=== PATIENT | female | born 1975 | race Two or more races ===

== ENCOUNTER 2017-04-04 17:53 | Emergency (ER) | payer BC ==
[~2017-04-04] VITALS: Ht 162.6 cm; Wt 79.0 kg
--- NOTE | 2017-04-04 18:46 | PHYS DOC ---
Past Medical History Past Medical History: No Pertinent History Past Surgical History: Tubal ligation, Other Additional Past Surgical Histo: fallopian tube removed/ectopic Alcohol Use: None Drug Use: None Adult General Chief Complaint Chief Complaint: DIZZY/LIGHT HEADED HPI HPI Patient is a 42 year old female who presents with multiple medical complaints. Patient reports headache, dizziness on standing, chest pain and lower abdominal pain. Patient denies nausea vomiting. She reports generalized weakness. No fever, chills, vomiting, sweats, constipation, diarrhea. Last menstrual period was 3 weeks ago. Evaluated by your PCP 2 days ago and today for the same complaints. Review of Systems Review of Systems Review symptoms as per history of present illness. All other review symptoms are negative. Current Medications Current Medications Current Medications Medications (Trade) Dose Ordered Sig/Lacey Start Time Stop Time Status Last Admin Dose Admin Acetaminophen/ Hydrocodone Bitart (Lortab 5/325) 1 tab 1X ONCE 04/04/17 22:30 04/04/17 22:30 DC Allergies Allergies Allergies Coded Allergies Type Severity Reaction Last Updated Verified No Known Drug Allergies 04/04/17 No Physical Exam Physical Exam Constitutional: Well developed, well nourished, no acute distress, non-toxic appearance. [] HENT: Normocephalic, atraumatic, bilateral external ears normal, oropharynx moist, no oral exudates, nose normal. [] Eyes: PERRLA, EOMI, conjunctiva normal, no discharge. [] Neck: Normal range of motion, no tenderness, supple, no stridor. [] Cardiovascular:Heart rate regular rhythm, no murmur [] Lungs & Thorax: Bilateral breath sounds clear to auscultation [] Abdomen: Bowel sounds normal, soft, no distention.. [] Skin: Warm, dry, no erythema, no rash. [] Back: No tenderness, no CVA tenderness. [] Extremities: No tenderness, no cyanosis, no clubbing, ROM intact, no edema. [] Neurologic: Alert and oriented X 3, normal motor function, normal sensory function, no focal deficits noted. [] Psychologic: Affect normal, judgement normal, mood normal. [] Current Patient Data Vital Signs Vital Signs Date Time Temp Pulse Resp B/P (MAP) Pulse Ox O2 Delivery O2 Flow Rate FiO2 04/04/17 20:13 64 20 114/62 (79) 97 Room Air 04/04/17 18:15 98.0 98.0 Lab Values Laboratory Tests Test 04/04/17 19:05 04/04/17 19:11 White Blood Count 8.7 x10^3/uL (4.0-11.0) Red Blood Count 4.01 x10^6/uL (3.50-5.40) Hemoglobin 12.5 g/dL (12.0-15.5) Hematocrit 37.5 % (36.0-47.0) Mean Corpuscular Volume 94 fL (79-100) Mean Corpuscular Hemoglobin 31 pg (25-35) Mean Corpuscular Hemoglobin Concent 33 g/dL (31-37) Red Cell Distribution Width 13.7 % (11.5-14.5) Platelet Count 199 x10^3/uL (140-400) Neutrophils (%) (Auto) 72 % (31-73) Lymphocytes (%) (Auto) 20 % (24-48) L Monocytes (%) (Auto) 6 % (0-9) Eosinophils (%) (Auto) 1 % (0-3) Basophils (%) (Auto) 1 % (0-3) Neutrophils # (Auto) 6.3 x10^3uL (1.8-7.7) Lymphocytes # (Auto) 1.8 x10^3/uL (1.0-4.8) Monocytes # (Auto) 0.6 x10^3/uL (0.0-1.1) Eosinophils # (Auto) 0.1 x10^3/uL (0.0-0.7) Basophils # (Auto) 0.1 x10^3/uL (0.0-0.2) Sodium Level 139 mmol/L (136-145) Potassium Level 3.7 mmol/L (3.5-5.1) Chloride Level 104 mmol/L (98-107) Carbon Dioxide Level 27 mmol/L (21-32) Anion Gap 8 (6-14) Blood Urea Nitrogen 10 mg/dL (7-20) Creatinine 0.7 mg/dL (0.6-1.0) Estimated GFR (Cockcroft-Gault) 92.7 BUN/Creatinine Ratio 14 (6-20) Glucose Level 97 mg/dL (70-99) Calcium Level 8.9 mg/dL (8.5-10.1) Total Bilirubin 0.5 mg/dL (0.2-1.0) Aspartate Amino Transferase (AST) 14 U/L (15-37) L Alanine Aminotransferase (ALT) 17 U/L (14-59) Alkaline Phosphatase 39 U/L (46-116) L Total Protein 7.6 g/dL (6.4-8.2) Albumin 3.8 g/dL (3.4-5.0) Albumin/Globulin Ratio 1.0 (1.0-1.7) Glucose (Fingerstick) 84 mg/dL (70-99) Laboratory Tests 04/04/17 19:05 Laboratory Tests 04/04/17 19:05 EKG EKG [] Radiology/Procedures Radiology/Procedures [] Course & Med Decision Making Course & Med Decision Making Pertinent Labs and Imaging studies reviewed. (See chart for details) [H with multiple medical complaints. Patient with chest pain likely related to heartburn. Patient with mild headache with retro-orbital throbbing with occasional blurring of vision in the right eye consistent with migraine. Patient 's dizziness likely related to the same. Patient has been evaluated for these complaints I her PCP and has outpatient workup pending including CT, endoscopy and neurology referral. Patient is neurologically intact on today's evaluation. Symptoms improved with treatment. Vital signs are stable. Lab works reviewed and is reassuring. Will treat supportively defer further management to the patient's PCP.] Dragon Disclaimer Dragon Disclaimer This electronic medical record was generated, in whole or in part, using a voice recognition dictation system. Departure Departure Impression: Primary Impression: Migraine Additional Impression: Heart burn Disposition: 01 HOME, SELF-CARE Condition: IMPROVED Referrals: KERLINE HUI MD (PCP) Patient Instructions: Chest Pain (Nonspecific), Migraine Headache, [id number] Problem Qualifiers MOUSTAPHA LONDON DO Apr 04, 2017 18:46
[2017-04-04 19:31] LABS: BASO # 0.1 x10^3/uL (0.0-0.2); BASO % 1 % (0-3); EOS % 1 % (0-3); HEMATOCRIT 37.5 % (36.0-47.0); HEMOGLOBIN 12.5 g/dL (12.0-15.5); LYMPH # 1.8 x10^3/uL (1.0-4.8); LYMPH % 20 % (24-48); MEAN CORPUSCULAR HEMOGLOBIN 31 pg (25-35); MEAN CORPUSCULAR HGB CONC 33 g/dL (31-37); MEAN CORPUSCULAR VOLUME 94 fL (79-100); MONO % 6 % (0-9); NEUT % 72 % (31-73); PLATELET COUNT 199 x10^3/uL (140-400); RED BLOOD COUNT 4.01 x10^6/uL (3.50-5.40); RED CELL DISTRIBUTION WIDTH 13.7 % (11.5-14.5); WHITE BLOOD COUNT 8.7 x10^3/uL (4.0-11.0)
[2017-04-04 19:38] LABS: CALCIUM 8.9 mg/dL (8.5-10.1); CREATININE 0.7 mg/dL (0.6-1.0); GFR 92.7; POTASSIUM 3.7 mmol/L (3.5-5.1)
[2017-04-04 19:44] LABS: ALBUMIN 3.8 g/dL (3.4-5.0); TOTAL BILIRUBIN 0.5 mg/dL (0.2-1.0); TOTAL PROTEIN 7.6 g/dL (6.4-8.2)
[2017-04-04 20:13] VITALS: BP 114/62
[2017-04-04] MEDS ORDERED: HYDROcodone/APAP 5/325MG 1 TAB TABLET PO ONE (22:30)
--- NOTE | 2017-04-05 11:25 | EKG ---
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
== END 2017-04-04 22:19 | disposition home or self-care (01) ==
LOC: ER 17:53
DX: G43.909 Migraine, unspecified, not intractable, without status migrainosus (principal); R12 Heartburn
CPT/HCPCS: 36415; 80053; 82962; 85025; 93005; 99285-25

== ENCOUNTER → 2017-04-10 | Outpatient (CLI) | payer BC ==
[2017-04-04 20:13] VITALS: BP 114/62
--- NOTE | 2017-04-10 16:21 | RAD ---
Indication dizziness. Amaurosis fugax. Grayscale color Doppler and spectral imaging was performed. The examination was targeted to the carotid bifurcations. On the right there is a normal waveform and velocity associated with the common carotid artery. The internal carotid waveform and velocities are normal. The external carotid has a normal appearance. The vertebral artery is patent and demonstrates normal directional flow. Significant plaquing is not seen. No definite significant turbulence is seen associated with the color images The left common carotid artery has a normal waveform and velocity. The internal carotid waveform and velocities are also normal. The external carotid has a normal appearance. The left vertebral is patent and demonstrates normal directional flow. Significant plaquing is not seen and no significant turbulence as suggested on the color images IMPRESSION: No evidence of hemodynamically significant stenosis at either carotid bifurcation. Stenosis 0-50%. Note: Stenosis calculations for CT, MR and conventional angiography are based upon determination of the distal ICA diameter in accordance with the NASCET methodology. Stenosis calculations for doppler studies are derived from validated velocity criteria which are known to correlate with NASCET methodology of determining stenosis.
--- NOTE | 2017-04-10 17:21 | RAD ---
Indication headache. Noncontrast images of the head were obtained. No prior imaging of the head is available. The calvarium appears unremarkable. The visualized paranasal sinuses appear normal. There is no subdural or epidural hematoma. The ventricles and sulci are normal. There is no mass or midline shift. No hemorrhage is seen. IMPRESSION: No acute or significant finding seen intracranially PQRS Compliance Statement: One or more of the following individualized dose reduction techniques were utilized for this examination: 1. Automated exposure control 2. Adjustment of the mA and/or kV according to patient size 3. Use of iterative reconstruction technique
== END | disposition home or self-care (01) ==
LOC: CT 15:21
PROVIDERS: ATTEND Family Medicine
DX: G45.3 Amaurosis fugax (principal); R51 Headache; R42 Dizziness and giddiness
CPT/HCPCS: 70450; 93880

== ENCOUNTER → 2017-04-24 | Outpatient (CLI) | payer BC ==
[2017-04-04 20:13] VITALS: BP 114/62
--- NOTE | 2017-04-24 09:20 | CARD ---
APPROVED REPORT EXAM: Two-dimensional and M-mode echocardiogram with Doppler and color Doppler. Other Information Quality : GoodHR: 63bpm Rhythm : NSR INDICATION Dizziness, Fatigue, Headaches, Amarousis fugax 2D DIMENSIONS RVDd2.7 (2.9-3.5cm)Left Atrium(2D)3.4 (1.6-4.0cm) IVSd1.0 (0.7-1.1cm)Aortic Root(2D)2.4 (2.0-3.7cm) LVDd4.5 (3.9-5.9cm)LVOT Diameter2.2 (1.8-2.4cm) PWd0.9 (0.7-1.1cm)LVDs3.1 (2.5-4.0cm) FS (%) 31.5 %SV54.0 ml LVEF(%)59.5 (>50%) Aortic Valve AoV Peak Fitz.112.9cm/sAoV VTI27.7cm AO Peak GR.5.1mmHgLVOT Peak Fitz.102.4cm/s AO Mean GR.3mmHgAVA (VMAX)3.45cm2 Mitral Valve MV E Oamjhala34.2cm/sMV DECEL AUBG536rm MV A Ewhaxnrt79.1cm/sE/A Ratio1.1 MV A Vdmonfcy76un Pulmonary Valve PV Peak Ubbkdejw89.7cm/s Pulmonary Vein S1 Fcenrhwa43.2cm/sD2 Ckldikrb29.3cm/s PVa thyarglq19gcmh LEFT VENTRICLE The left ventricle is normal size. There is normal left ventricular wall thickness. The left ventricu lar systolic function is normal. The Ejection Fraction is 60-65%. There is normal LV segmental wall m otion. The left ventricular diastolic function and filling is normal for age. RIGHT VENTRICLE The right ventricle is normal size. There is normal right ventricular wall thickness. The right ventr icular systolic function is normal. ATRIA The left atrium size is normal. The right atrium size is normal. The interatrial septum is intact wit h no evidence for an atrial septal defect or patent foramen ovale as noted on 2-D or Doppler imaging. AORTIC VALVE The aortic valve is normal in structure and function. Doppler and Color Flow revealed no significant aortic regurgitation. There is no significant aortic valvular stenosis. MITRAL VALVE The mitral valve leaflets are mildly thickened. There is no evidence of mitral valve prolapse. There is no mitral valve stenosis. Doppler and Color Flow revealed no mitral valve regurgitation noted. TRICUSPID VALVE Doppler and Color Flow revealed no tricuspid valve regurgitation noted, unable to determine pulmonary artery pressure at exam time. PULMONIC VALVE The pulmonary valve is not well visualized but appears to open adequately. Doppler and Color Flow rev ealed mild pulmonic valvular regurgitation. There is no pulmonic valvular stenosis by spectral Dopple r. GREAT VESSELS The aortic root is normal in size. The aortic root is normal in size. The ascending aorta is normal i n size. The pulmonary artery is normal. The IVC is normal in size and collapses >50% with inspiration . PERICARDIAL EFFUSION There is no evidence of significant pericardial effusion. Critical Notification Critical Value: No <Conclusion> The left ventricular systolic function is normal. The Ejection Fraction is 60-65%. There is normal LV segmental wall motion. There is no evidence of significant pericardial effusion.
== END | disposition home or self-care (01) ==
LOC: ECHO 08:09
PROVIDERS: ATTEND Family Medicine
DX: I37.1 Nonrheumatic pulmonary valve insufficiency (principal); R51 Headache; R42 Dizziness and giddiness; R53.83 Other fatigue
CPT/HCPCS: 93306

== ENCOUNTER 2017-05-05 18:02 | Emergency (ER) | payer BC ==
[~2017-05-05] VITALS: Ht 160 cm; Wt 76.2 kg
[2017-05-05 21:05] LABS: BASO # 0.1 x10^3/uL (0.0-0.2); BASO % 1 % (0-3); EOS % 3 % (0-3); HEMATOCRIT 39.8 % (36.0-47.0); HEMOGLOBIN 13.3 g/dL (12.0-15.5); LYMPH # 2.5 x10^3/uL (1.0-4.8); LYMPH % 25 % (24-48); MEAN CORPUSCULAR HEMOGLOBIN 32 pg (25-35); MEAN CORPUSCULAR HGB CONC 34 g/dL (31-37); MEAN CORPUSCULAR VOLUME 94 fL (79-100); MONO % 8 % (0-9); NEUT % 64 % (31-73); PLATELET COUNT 212 x10^3/uL (140-400); RED BLOOD COUNT 4.24 x10^6/uL (3.50-5.40); RED CELL DISTRIBUTION WIDTH 14.3 % (11.5-14.5)
[2017-05-05] MEDS: LIDO:MAALOX:DONNATAL 1:1:1 15 ML SINGLE DOSE SWSW ONE (21:16)
[2017-05-05] MEDS: ONDANSETRON PF 4 MG/2 ML VIAL. IV ONE (21:16)
[2017-05-05 21:18] LABS: CALCIUM 8.8 mg/dL (8.5-10.1); CREATININE 0.9 mg/dL (0.6-1.0); GFR 69.3; POTASSIUM 3.5 mmol/L (3.5-5.1)
[2017-05-05 21:24] LABS: TOTAL BILIRUBIN 0.4 mg/dL (0.2-1.0)
[2017-05-05 21:36] LABS: BILIRUBIN,URINE NEGATIVE (NEG); GLUCOSE,URINE NEGATIVE (NEG); NITRITE,URINE NEGATIVE (NEG); PH,URINE 5.5; PROTEIN,URINE NEGATIVE (NEG-TRACE); UROBILINOGEN,URINE 0.2 mg/dL (0.2 mg/dL)
[2017-05-05 21:55] LABS: BACTERIA,URINE FEW /HPF (0-FEW); SQUAMOUS EPITHELIAL CELL,UR FEW /LPF; WBC,URINE OCC /HPF (0-4)
[2017-05-05 22:30] VITALS: BP 123/70
[2017-05-05] MEDS ORDERED: RANI150T6 PO (22:52)
--- NOTE | 2017-05-05 22:53 | PHYS DOC ---
Past Medical History Past Medical History: GERD Past Surgical History: Tubal ligation, Other Additional Past Surgical Histo: fallopian tube removed/ectopic Alcohol Use: None Drug Use: None Adult General Chief Complaint Chief Complaint: abdominal pain HPI HPI Patient is a 42 year old female who presents with burning epigastric pain. She reports history of GERD for which she takes nexium, states over the past week she has had increased burning/acidic pain in her epigastric region radiating to chest & throat. She states the pain keeps her awake at night. She feels nauseated. She denies fevers/chills, vomiting, hematemesis, diarrhea , constipation, hematochezia/melena, dysuria/hematuria. She has seen GI in the past & underwent biopsy with EGD, has been taking nexium since that time. Denies history of abdominal surgeries. Review of Systems Review of Systems Constitutional: Denies fever or chills HENT: Denies nasal congestion or sore throat Respiratory: Denies cough or shortness of breath Cardiovascular: Denies chest pain or edema GI: Reports abdominal pain, nausea, denies vomiting, bloody stools or diarrhea : Denies dysuria or hematuria Musculoskeletal: Denies back pain or joint pain Integument: Denies rash or skin lesions Neurologic: Denies headache Current Medications Current Medications Current Medications Medications (Trade) Dose Ordered Sig/Lacey Start Time Stop Time Status Last Admin Dose Admin Multi-Ingredient Mouthwash/Gargle (Gi Cocktail Single Dose) 15 ml 1X ONCE 05/05/17 21:15 05/05/17 21:16 DC 05/05/17 21:16 15 ML Ondansetron HCl (Zofran) 4 mg 1X ONCE 05/05/17 21:15 05/05/17 21:16 DC 05/05/17 21:16 4 MG Allergies Allergies Allergies Coded Allergies Type Severity Reaction Last Updated Verified No Known Drug Allergies 04/04/17 No Physical Exam Physical Exam Constitutional: Well developed, well nourished, no acute distress, non-toxic appearance. HENT: Normocephalic, atraumatic, bilateral external ears normal, oropharynx moist, nose normal. Eyes: conjunctiva normal, no discharge. Neck: supple, no stridor. Cardiovascular: RRR, no murmurs, no edema. Lungs & Thorax: LCTAB, no wheezing, no respiratory distress. no chest wall tenderness with palpation. Abdomen: soft, epigastric tenderness without rebound/guarding, no masses or pulsatile masses, nondistended. Skin: Warm, dry, no erythema, no rash. Back: No CVA tenderness. Extremities: No tenderness, no edema. Neurologic: Alert and oriented X 3, no focal deficits noted. Psychologic: Affect normal, judgement normal, mood normal. Current Patient Data Vital Signs Vital Signs Date Time Temp Pulse Resp B/P (MAP) Pulse Ox O2 Delivery O2 Flow Rate FiO2 05/05/17 22:30 70 22 123/70 (87) 99 Room Air 05/05/17 18:20 99.1 99.1 Lab Values Laboratory Tests Test 05/05/17 20:31 05/05/17 21:30 05/05/17 21:31 White Blood Count 10.0 x10^3/uL (4.0-11.0) Red Blood Count 4.24 x10^6/uL (3.50-5.40) Hemoglobin 13.3 g/dL (12.0-15.5) Hematocrit 39.8 % (36.0-47.0) Mean Corpuscular Volume 94 fL (79-100) Mean Corpuscular Hemoglobin 32 pg (25-35) Mean Corpuscular Hemoglobin Concent 34 g/dL (31-37) Red Cell Distribution Width 14.3 % (11.5-14.5) Platelet Count 212 x10^3/uL (140-400) Neutrophils (%) (Auto) 64 % (31-73) Lymphocytes (%) (Auto) 25 % (24-48) Monocytes (%) (Auto) 8 % (0-9) Eosinophils (%) (Auto) 3 % (0-3) Basophils (%) (Auto) 1 % (0-3) Neutrophils # (Auto) 6.4 x10^3uL (1.8-7.7) Lymphocytes # (Auto) 2.5 x10^3/uL (1.0-4.8) Monocytes # (Auto) 0.8 x10^3/uL (0.0-1.1) Eosinophils # (Auto) 0.3 x10^3/uL (0.0-0.7) Basophils # (Auto) 0.1 x10^3/uL (0.0-0.2) Sodium Level 141 mmol/L (136-145) Potassium Level 3.5 mmol/L (3.5-5.1) Chloride Level 106 mmol/L (98-107) Carbon Dioxide Level 24 mmol/L (21-32) Anion Gap 11 (6-14) Blood Urea Nitrogen 8 mg/dL (7-20) Creatinine 0.9 mg/dL (0.6-1.0) Estimated GFR (Cockcroft-Gault) 69.3 BUN/Creatinine Ratio 9 (6-20) Glucose Level 77 mg/dL (70-99) Calcium Level 8.8 mg/dL (8.5-10.1) Total Bilirubin 0.4 mg/dL (0.2-1.0) Aspartate Amino Transferase (AST) 15 U/L (15-37) Alanine Aminotransferase (ALT) 19 U/L (14-59) Alkaline Phosphatase 40 U/L (46-116) L Troponin I Quantitative < 0.017 ng/mL (0.000-0.055) Total Protein 8.0 g/dL (6.4-8.2) Albumin 4.0 g/dL (3.4-5.0) Albumin/Globulin Ratio 1.0 (1.0-1.7) Lipase 246 U/L (73-393) Urine Collection Type Unknown Urine Color Yellow Urine Clarity Clear Urine pH 5.5 Urine Specific Hedley 1.025 Urine Protein Negative mg/dL (NEG-TRACE) Urine Glucose (UA) Negative mg/dL (NEG) Urine Ketones (Stick) 15 mg/dL (NEG) Urine Blood Large (NEG) Urine Nitrite Negative (NEG) Urine Bilirubin Negative (NEG) Urine Urobilinogen Dipstick 0.2 mg/dL (0.2 mg/dL) Urine Leukocyte Esterase Negative (NEG) Urine RBC 6-10 /HPF (0-2) Urine WBC Occ /HPF (0-4) Urine Squamous Epithelial Cells Few /LPF Urine Bacteria Few /HPF (0-FEW) Urine Mucus Marked /LPF POC Urine HCG, Qualitative Hcg negative (Negative) Laboratory Tests 05/05/17 20:31 Laboratory Tests 05/05/17 20:31 EKG EKG interpreted by me: NSR rate 57, no acute ST/T wave changes, normal intervals, no ectopy.[] Radiology/Procedures Radiology/Procedures acute abdominal series: interpreted by me: no cardiomegaly, no infiltrate, no pneumothorax, no air fluid levels, no free air. Course & Med Decision Making Course & Med Decision Making Pertinent Labs and Imaging studies reviewed. (See chart for details) Patient presents with epigastric abdominal pain. Gave GI cocktail. Obtained labs , EKG, acute abdominal series. She felt better after treatment here. No acute abnormalities were identified. She felt better and was comfortable with discharge home. Recommend rest, by mouth hydration, avoid spicy foods and alcohol, try taking Zantac in addition to Nexium. Follow-up with primary care physician in 2-3 days. Make an appointment in the GI clinic in about one week with Dr. Hewitt. Return to the emergency department for high fever, severe pain, uncontrolled vomiting, any otherwise worsening condition. Discharged home in stable and improved condition. [] Dragon Disclaimer Dragon Disclaimer This electronic medical record was generated, in whole or in part, using a voice recognition dictation system. Departure Departure Impression: Primary Impression: Epigastric abdominal pain Disposition: HOME, SELF-CARE Condition: STABLE Referrals: KERLINE HUI MD (PCP) Patient Instructions: Gastroesophageal Reflux Disease, Adult, Mlau-[id number] Additional Instructions: You were seen in the emergency department today for abdominal pain. Labs, EKG, x -ray did not show any serious cause of symptoms. Please continue Nexium, try taking Zantac, avoid spicy foods and alcohol. Follow-up with your primary care physician within 2-3 days, and make an appointment with Dr. Hewitt in the GI clinic within about a week. Return to the emergency department for high fever, severe pain, uncontrolled vomiting, any otherwise worsening condition. Scripts Ranitidine Hcl (ZANTAC) 150 Mg Tablet 150 MG PO DAILY, #15 TAB Prov: MARRY HAYNES MD 05/05/17 MARRY HAYNES MD May 05, 2017 22:53
--- NOTE | 2017-05-06 06:59 | EKG ---
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
--- NOTE | 2017-05-06 08:14 | RAD ---
Acute abdominal series Indication: Epigastric pain for 4 months, more acute for 3 weeks. Minimal appetite, weakness, pressure/tightness originating in the epigastric region radiating superiorly to the neck. History of acid reflux. Technique: Acute abdominal series x-ray Comparison: None Findings: Heart is normal in size. Lungs are clear. No pneumoperitoneum. Moderate amount of stool is seen within ascending colon. The contours of solid abdominal organs are within normal limits. No abnormally dilated bowel loops or air-fluid levels. Visualized bones are within normal limits. Impression: No acute findings. No evidence of large hiatal hernia. No bowel obstruction.
== END 2017-05-05 23:00 | disposition home or self-care (01) ==
LOC: ER 18:02
DX: R10.13 Epigastric pain (principal); R11.0 Nausea; K21.9 Gastro-esophageal reflux disease without esophagitis
CPT/HCPCS: 36415; 74022; 80053; 81001; 81025; 83690; 84484; 85025; 93005; 96374; 99285; J2405

== ENCOUNTER → 2017-05-22 | Outpatient (CLI) | payer BC ==
[2017-05-05 22:30] VITALS: BP 123/70
[~2017-05-22] MED LIST: RANI150T6 PO
[2017-05-22 11:22] LABS: BASO # 0.1 x10^3/uL (0.0-0.2); BASO % 1 % (0-3); EOS % 4 % (0-3); HEMATOCRIT 41.8 % (36.0-47.0); HEMOGLOBIN 14.1 g/dL (12.0-15.5); LYMPH # 1.9 x10^3/uL (1.0-4.8); LYMPH % 22 % (24-48); MEAN CORPUSCULAR HEMOGLOBIN 32 pg (25-35); MEAN CORPUSCULAR HGB CONC 34 g/dL (31-37); MEAN CORPUSCULAR VOLUME 94 fL (79-100); MONO % 6 % (0-9); NEUT % 67 % (31-73); PLATELET COUNT 182 x10^3/uL (140-400); RED BLOOD COUNT 4.44 x10^6/uL (3.50-5.40); RED CELL DISTRIBUTION WIDTH 13.8 % (11.5-14.5); WHITE BLOOD COUNT 8.6 x10^3/uL (4.0-11.0)
[2017-05-22 11:39] LABS: ALBUMIN 3.9 g/dL (3.4-5.0); CALCIUM 8.7 mg/dL (8.5-10.1); CREATININE 0.9 mg/dL (0.6-1.0); GFR 69.3; POTASSIUM 3.9 mmol/L (3.5-5.1); TOTAL BILIRUBIN 0.3 mg/dL (0.2-1.0)
[2017-05-22 11:50] LABS: FREE T4 0.87 ng/dL (0.76-1.46)
== END | disposition home or self-care (01) ==
LOC: LAB 11:07
PROVIDERS: ATTEND Psychiatry & Neurology Neurology
DX: R45.0 Nervousness (principal)
CPT/HCPCS: 36415; 80053; 84439; 84443; 85025; 85651

== ENCOUNTER → 2017-06-17 | Outpatient (CLI) | payer BC ==
[~2017-06-17] MED LIST changes: +GADOBUTROL 7.5 MMOL/7.5 ML VIAL IV ONE
--- NOTE | 2017-06-17 12:07 | RAD ---
MRI Brain with and without contrast History: Increased migraine headaches the last 2 months Technique: Multiplanar, multi sequential pre and postcontrast MR imaging was performed of the brain. Contrast: 7.5 cc Gadavist Comparison: None Findings: There is some motion degradation. There is no evidence of recent infarct or cytotoxic edema. The ventricles, sulci, and cisterns are within normal limits in size and configuration. There is no significant midline shift, intraaxial mass effect, or focal abnormal extra-axial fluid collection. There is no significant signal abnormality of the brain parenchyma. There is no nodular parenchymal or leptomeningeal enhancement. There is preservation of the major intracranial flow-voids at the skull base. The cerebellar tonsils are normal in location. There is no significant abnormality of the pineal gland or pituitary gland. There is patchy moderate to severe ethmoid air cell mucosal thickening, to lesser degree of the frontal, sphenoid, and maxillary sinuses. There is likely mucus retention cyst anterior left maxillary sinus on the order of 0.9 cm. The mastoid air cells are aerated. There is preserved marrow signal of the clivus. Impression: 1. There is no significant intracranial abnormality. 2. There is paranasal sinus mucosal thickening as stated greatest of the ethmoid air cells. Electronically signed by: Young Otto MD (06/17/2017 12:04 PM) [id number]
== END | disposition home or self-care (01) ==
LOC: MRI 11:00
PROVIDERS: ATTEND Psychiatry & Neurology Neurology
CPT/HCPCS: 70553 ×2; A9585 ×2

== ENCOUNTER → 2017-12-03 | Outpatient (CLI) | payer BC ==
[2017-12-03 14:49] LABS: CREATINE KINASE 136 U/L (26-192)
[2017-12-03 14:49] LABS: GLUCOSE 96 mg/dL (70-99)
[2017-12-03 15:35] LABS: SEDIMENTATION RATE 12 (0-25)
[2017-12-03 20:37] LABS: VITAMIN-B12 696 pg/mL (247-911)
[2017-12-05 19:14] LABS: ANA INTERP Negative (.)
== END | disposition home or self-care (01) ==
LOC: LAB 14:05
DX: R53.83 Other fatigue (principal); G43.909 Migraine, unspecified, not intractable, without status migrainosus
CPT/HCPCS: 36415; 82306; 82550; 82607; 82947; 85651; 86038

== ENCOUNTER → 2018-03-06 | Outpatient (CLI) | payer BC | END | disposition home or self-care (01) | LOC: MAMMO 15:39 | DX: Z12.31 Encounter for screening mammogram for malignant neoplasm of breast (principal); G43.909 Migraine, unspecified, not intractable, without status migrainosus; K21.9 Gastro-esophageal reflux disease without esophagitis | CPT/HCPCS: 77067 ==

== ENCOUNTER → 2018-04-27 | Outpatient (CLI) | payer BC ==
[~2018-04-27] MED LIST changes: -GADOBUTROL 7.5 MMOL/7.5 ML VIAL IV ONE; +RANI150T21 PO; -RANI150T6 PO
[2018-04-27 12:40] LABS: CREATININE 0.8 mg/dL (0.6-1.0)
== END | disposition home or self-care (01) ==
LOC: LAB 12:06
PROVIDERS: ATTEND Psychiatry & Neurology Neurology
DX: R51 Headache (principal); K21.9 Gastro-esophageal reflux disease without esophagitis
CPT/HCPCS: 36415; 82565; 84520

== ENCOUNTER → 2018-10-28 | Outpatient (CLI) | payer BC ==
[~2018-10-28] MED LIST changes: +RANI-376 PO; -RANI150T21 PO
[2018-10-28 12:28] LABS: CREATININE 0.6 mg/dL (0.6-1.0); GFR 110.2
== END | disposition home or self-care (01) ==
LOC: LAB 11:35
PROVIDERS: ATTEND Psychiatry & Neurology Neurology
DX: G43.909 Migraine, unspecified, not intractable, without status migrainosus (principal)
CPT/HCPCS: 36415; 82565; 84450; 84460; 84520

== ENCOUNTER → 2019-03-13 | Outpatient (CLI) | payer BC ==
--- NOTE | 2019-03-15 14:47 | RAD ---
DATE: 03/13/2019 8:53 AM EXAM: MAMMO CHRISTI SCREENING BILATERAL HISTORY: routine screening evaluation. COMPARISON: Prior mammographic imaging 03/06/2018 Bilateral CC and MLO views of the breasts were performed. Bilateral breast tomosynthesis was performed in CC and MLO projections. This study was interpreted with the benefit of Computerized Aided Detection (CAD). FINDINGS: Breast Density: HETERO The breast parenchyma Is heterogeneously dense, which could reduce sensitivity of mammography. Breast parenchyma level C Multiple well-circumscribed benign type nodular densities are grossly stable to prior examination 03/06/2018. No suspicious masses, microcalcifications or architectural distortion is present to suggest malignancy in either breast. The visualized axillae are unremarkable. IMPRESSION: No mammographic evidence of malignancy. BI-RADS CATEGORY: 2 BENIGN FINDING(S) RECOMMENDED FOLLOW-UP: 12M 12 MONTH FOLLOW-UP Annual screening mammography is recommended, unless clinically indicated sooner based on symptoms or change in physical exam. PQRS compliance statement: Patient information was entered into a reminder system with a target due date for the next mammogram. Mammography is a sensitive method for finding small breast cancers, but it does not detect them all and is not a substitute for careful clinical examination. A negative mammogram does not negate a clinically suspicious finding and should not result in delay in biopsying a clinically suspicious abnormality. "Our facility is accredited by the [employer] Mammography Program."
== END | disposition home or self-care (01) ==
LOC: MAMMO 08:44
PROVIDERS: ATTEND Nurse Practitioner Family
DX: Z12.31 Encounter for screening mammogram for malignant neoplasm of breast (principal)
CPT/HCPCS: 77063; 77067

== ENCOUNTER → 2019-05-19 | Outpatient (CLI) | payer BC ==
[2019-05-19 12:03] LABS: ALBUMIN 3.8 g/dL (3.4-5.0); TOTAL PROTEIN 7.7 g/dL (6.4-8.2)
[2019-05-19 12:04] LABS: CREATININE 0.8 mg/dL (0.6-1.0); GFR 78.7; POTASSIUM 3.9 mmol/L (3.5-5.1); TOTAL BILIRUBIN 0.3 mg/dL (0.2-1.0)
== END | disposition home or self-care (01) ==
LOC: LAB 11:31
PROVIDERS: ATTEND Psychiatry & Neurology Neurology
DX: G43.709 Chronic migraine without aura, not intractable, without status migrainosus (principal)
CPT/HCPCS: 36415; 80053; 85651